=== PATIENT | male | born 2000 ===

== ENCOUNTER 2024-02-17 15:20 | Outpatient (RCR) | payer SELFPAY | END 2024-02-17 23:59 | disposition home or self-care (01) | LOC: ROT 15:20 | PROVIDERS: ATTENDING PHYSICIAN Orthopaedic Surgery Hand Surgery | DX: S52.91XD Unspecified fracture of right forearm, subsequent encounter for closed fracture with routine healing (principal); Z73.6 Limitation of activities due to disability | CPT/HCPCS: 97760 ==